=== PATIENT | male | born 1950 | race Caucasian/White ===

== ENCOUNTER → 2018-11-16 | Outpatient (CLI) | payer MEDICARE, OTHER | LOC: M.ULTRA 10:29 | DX: L03.116 Cellulitis of left lower limb (principal); R60.0 Localized edema; M79.662 Pain in left lower leg ==

== ENCOUNTER → 2018-11-21 | Outpatient (CLI) | payer MEDICARE, OTHER | LOC: M.ULTRA 11:36 | DX: I70.291 Other atherosclerosis of native arteries of extremities, right leg (principal); I70.202 Unspecified atherosclerosis of native arteries of extremities, left leg; L03.116 Cellulitis of left lower limb; L03.115 Cellulitis of right lower limb ==